=== PATIENT | male | born 1965 | race Two or more races ===

== ENCOUNTER 2016-06-27 15:55 | Emergency (ER) | payer OTHER ==
[~2016-06-27] VITALS: Ht 177.8 cm; Wt 81.6 kg
--- NOTE | 2016-06-27 16:47 | Emergency Room Report ---
History of Present Illness General Chief Complaint: General Complaint Source: Patient Present Illness HPI Patient is a 50-year-old male who presented after having increased right lower extremity swelling. Patient had intermittent swelling for the past 2 days. Swelling has somewhat improved spontaneously. The patient was noted to have factor V Leiden. Patient had no complaints of pain. He denied any chest pain or shortness of breath. Allergies: Coded Allergies: PENICILLINS (Unverified Allergy, Unknown, 06/27/16) Uncoded Allergies: PENICILLIN (Adverse Reaction, Unknown, 06/27/16) Patient History Reviewed Nursing Documentation: PMH: Agreed, PSxH: Agreed Nursing Documentation-PM Past Medical History: No Stated History Review of Systems All Other Systems: negative except mentioned in HPI Physical Exam Vital Signs Date Time Temp Pulse Resp B/P Pulse Ox O2 Delivery O2 Flow Rate FiO2 06/27/16 16:01 97.9 117 16 124/83 98 Room Air Sp02 EP Interpretation: reviewed, normal General Appearance: normal inspection, well appearing, no apparent distress, alert, GCS 15 Head: atraumatic ENT: normal ENT inspection, hearing grossly normal, normal voice Neck: normal inspection, full range of motion, supple, no bony tend Respiratory: normal inspection, lungs clear, normal breath sounds, no respiratory distress, no retraction, no wheezing Cardiovascular #1: regular rate, rhythm, no edema Gastrointestinal: normal inspection, normal bowel sounds, non tender, soft, no guarding, no hernia Genitourinary: no CVA tenderness Musculoskeletal: normal inspection, back normal, normal range of motion Neurologic: normal inspection, alert, responsive, speech normal Psychiatric: normal inspection, judgement/insight normal, mood/affect normal Skin: normal inspection, normal color, no rash Medical Decision Making Diagnostic Impression: Primary Impression: Edema ER Course The patient presented for right lower extremity swelling. The differential diagnosis included was not limited to the deep venous thrombosis, heat edema, lymphadenopathy, allergic reaction, cellulitis among others. Because of complexity of patient's case imaging studies were ordered.A duplex ultrasound of the right lower extremity showed no evidence of a deep venous thrombosis.The patient is advised to follow up with primary care doctor in 1-2 days. Patient is advised to return if any worsening condition or if any changes in status that are concerning. Last Vital Signs Date Time Temp Pulse Resp B/P Pulse Ox O2 Delivery O2 Flow Rate FiO2 3/29/17 16:01 97.9 117 16 124/83 98 Room Air Status: improved Disposition: HOME, SELF-CARE Condition: Stable MatthieuKevin Jun 27, 2016 16:47
[2016-06-27 17:23] VITALS: BP 119/79
[2016-06-27 17:51] VITALS: BP 119/79
--- NOTE | 2016-07-04 10:30 | Diagnostic Imaging Report ---
APPROVED REPORT CPT Code: 82758 Present Symptoms Lower Extremity Pain: Right Lower Extremity Edema: Right RIGHT LEG: Venous imaging reveals a patent deep venous system. There is no evidence of thrombus within the femoral, popliteal or tibial segments. The greater saphenous vein is also within normal limits. Doppler indicates normal spontaneous flow within these segments.
== END 2016-06-27 17:53 | disposition home or self-care (01) ==
LOC: EMR 17:36
DX: R60.9 Edema, unspecified (principal); Z88.0 Allergy status to penicillin
CPT/HCPCS: 93971; 99284